=== PATIENT | male | born 1975 | race Caucasian/White ===

== ENCOUNTER 2018-04-03 05:49 | Emergency (ER) | payer BC ==
[~2018-04-03] VITALS: Ht 172.7 cm; Wt 90.4 kg
[2018-04-03 05:53] VITALS: Ht 172.7 cm; Wt 90.4 kg
[2018-04-03 06:23] LABS: BASOPHIL % 0.7 % (0-2); PLATELET COUNT 326 x10^3mcL (130-400); RED CELL DISTRIBUTION WIDTH 12.5 % (11.5-14.5)
[2018-04-03 06:39] LABS: CALCIUM 9.1 mg/dL (8.5-10.1); CARBON DIOXIDE 31.2 mmol/L (21-32); CHLORIDE SERUM 105 mmol/L (98-107); CREATININE SERUM 0.8 mg/dL (0.7-1.3); GFR1 > 60 mL/min; GLUCOSE SERUM 103 mg/dL (74-106); POTASSIUM SERUM 3.9 mmol/L (3.5-5.1); SODIUM SERUM 141 mmol/L (136-145)
[2018-04-03 06:44] LABS: ALBUMIN 3.5 g/dL (3.4-5.0); ALKALINE PHOSPHATASE 85 U/L (46-116); ALT/SGPT 25 U/L (16-63); AST/SGOT 19 U/L (15-37); BILIRUBIN TOTAL 0.3 mg/dL (0.20-1.00); LIPASE 111 IU/L (73-393); TOTAL PROTEIN, SERUM 7.5 g/dL (6.4-8.2)
[2018-04-03 07:34] LABS: AMPHETAMINE QUAL UR NONE DETECTED (See below)
[2018-04-03 08:07] VITALS: BP 124/78
== END 2018-04-03 08:07 | disposition home or self-care (01) ==
LOC: ED 05:49
PROVIDERS: Emergency Medicine
DX: T36.8X5A Adverse effect of other systemic antibiotics, initial encounter (principal); K90.49 Malabsorption due to intolerance, not elsewhere classified; J40 Bronchitis, not specified as acute or chronic; Y92.89 Other specified places as the place of occurrence of the external cause
CPT/HCPCS: J2270; J3490; J7030; Q0092; Q0162